=== PATIENT | female | born 1980 ===

== ENCOUNTER 2017-02-06 08:36 | Emergency (ER) | payer OTHER ==
[2017-02-06 08:37] VITALS: BMI 41.9
[2017-02-06] MEDS ORDERED: Sodium Chloride 0.9% 1,000 ML IV STA (09:26)
--- NOTE | 2017-02-06 09:41 | ED PDOC ---
HPI: Female Pain Time Seen by Provider: 02/06/17 09:11 Chief Complaint (Nursing): Shortness Of Breath Chief Complaint (Provider): dysuria History Per: Patient History/Exam Limitations: no limitations Onset/Duration Of Symptoms: Days (x 6) Current Symptoms Are (Timing): Still Present Additional Complaint(s): Traci Cowan is a 36 year old female, with a previous medical history of asthma , who presents to the ED with complaints of dysuria associated with frequency, fever, abdominal pain and vomiting ongoing for the past 6 days. Patient reports being able to tolerate PO intake and denies any diarrhea. PMD: none provided Abnormal Vaginal Bleeding: No Past Medical History Reviewed: Historical Data, Nursing Documentation, Vital Signs - Medical History PMH: No Chronic Diseases - Surgical History Surgical History: No Surg Hx - Family History Family History: States: Unknown Family Hx - Home Medications Home Medications: Ambulatory Orders Medication Instructions Recorded Multivit/Folic Acid/I 1 tab PO DAILY 04/06/16 [] Nitrofurantoin Macrocrystals 100 mg PO BID #20 cap 02/06/17 [Macrobid] Ondansetron [Zofran] 4 mg PO Q8H #10 tab 02/06/17 - Allergies Allergies/Adverse Reactions: Allergies Allergy/AdvReac Type Severity Reaction Status Date / Time No Known Allergies Allergy Verified 02/06/17 08:55 Review of Systems ROS Statement: Except As Marked, All Systems Reviewed And Found Negative Constitutional: Positive for: Fever Gastrointestinal: Positive for: Vomiting, Abdominal Pain. Negative for: Diarrhea Genitourinary Female: Positive for: Dysuria, Frequency Physical Exam - Reviewed Nursing Documentation Reviewed: Yes Vital Signs Reviewed: Yes - Physical Exam Appears: Positive for: Well, Non-toxic, No Acute Distress Cardiovascular/Chest: Positive for: Regular Rate, Rhythm Respiratory: Positive for: CNT, Normal Breath Sounds Gastrointestinal/Abdominal: Positive for: Normal Exam, Bowel Sounds, Soft. Negative for: Tenderness Back: Positive for: R CVA Tenderness (mild) Neurologic/Psych: Positive for: Alert, Oriented - Laboratory Results Result Diagrams: 02/06/17 09:40 02/06/17 09:40 Medical Decision Making Medical Decision Making: Initial Plan: * VBG shock panel * labs * urine * urine dipstick * IV NS 1,000 ml at 1,000 ml/hr * blood culture * urine culture * reevaluation Scribe Attestation: Documented by Georgina Mckeon, acting as a scribe for Rudy Cisneros MD. Provider Scribe Attestation: All medical record entries made by the Scribe were at my direction and personally dictated by me. I have reviewed the chart and agree that the record accurately reflects my personal performance of the history, physical exam, medical decision making, and the department course for this patient. I have also personally directed, reviewed, and agree with the discharge instructions and disposition. Disposition - Clinical Impression Clinical Impression: UTI (urinary tract infection), - Patient ED Disposition Is Patient to be Admitted: No Counseled Patient/Family Regarding: Studies Performed, Diagnosis, Need For Followup, Rx Given - Disposition Referrals: [facility]Outside] [facility] [Outside] Disposition: Routine/Home Disposition Time: 12:16 Condition: FAIR Prescriptions: Nitrofurantoin Macrocrystals [Macrobid] 100 mg PO BID #20 cap Ondansetron [Zofran] 4 mg PO Q8H #10 tab Instructions: Urinary Tract Infection in (ED)
[2017-02-06 10:02] LABS: VENOUS BLOOD GAS BASE EXCESS -1.2 mmol/L (0.0-2.0); VENOUS BLOOD GAS PCO2 31 mmHg (40-60); VENOUS BLOOD PH 7.46 (7.32-7.43)
[2017-02-06 10:07] LABS: ALKALINE PHOSPHATASE 79 U/L (38-126); ALT/SGPT 28 U/L (9-52); AST/SGOT 27 U/L (14-36); BILIRUBIN,TOTAL 0.8 mg/dl (0.2-1.3); BLOOD UREA NITROGEN 15 mg/dl (7-17); CALCIUM 8.8 mg/dL (8.4-10.2); CARBON DIOXIDE 23 mmol/L (22-30); CHLORIDE 100 mmol/L (98-107); GFR AFRICAN-AMERICAN > 60; GLUCOSE,RANDOM 114 mg/dL (65-105); POTASSIUM 3.2 MMOL/L (3.6-5.0); SODIUM 135 mmol/l (132-148); TOTAL PROTEIN 8.2 G/DL (6.3-8.2)
[2017-02-06 10:16] LABS: BASO % 0.2 % (0.0-2.0); EOS % 0.1 % (0.0-4.0); MEAN CELL VOLUME 78.4 fl (81.0-99.0); MEAN CORPUSCULAR HEMOGLOBIN 25.7 pg (27.0-31.0); MEAN CORPUSCULAR HGB CONC 32.8 g/dL (33.0-37.0); MEAN PLATELET VOLUME 8.7 fl (7.2-11.7); MONO # 1.5 K/uL (0.0-0.8); MONO % 10.8 % (0.0-10.0); NEUT # 11.6 K/uL (1.8-7.0); NEUT % 81.9 % (50.0-75.0); NRBC % 0.1 % (0.0-0.0); PLATELET COUNT 282 K/uL (130-400); RED CELL DISTRIBUTION WIDTH 17.3 % (11.5-14.5); WHITE BLOOD COUNT 14.1 K/uL (4.8-10.8)
[2017-02-06] MEDS ORDERED: Potassium Chloride 20 mEq ER Tab PO ONE ×2 (10:19→11:18)
[2017-02-06 11:14] LABS: NEUTROPHIL 83 % (42-75); TOTAL CELLS COUNTED 100
[2017-02-06 12:49] VITALS: BP 108/65; PULSE 88; RESP 18; TEMP 100.5; O2SAT 98
--- NOTE | 2017-02-06 13:57 | US ---
HISTORY: r/o ectopic COMPARISON: None available. TECHNIQUE: Transvaginal ultrasound examination of the pelvis. FINDINGS: UTERUS: Measures 9.2 x 5.5 x 5.5 cm. Normal in size and appearance. No fibroid or other mass lesion seen. ENDOMETRIUM: There is intrauterine gestational sac contains pole and yolk sac. Gestational sac mean is 1.2 centimeter which corresponding to gestational age of 5 weeks 2 days. The CRL measures 0.26 centimeter which corresponding to gestational age of 5 weeks 6 days. The yolk sac measures 0.25 centimeter. The heart rate is 146 BPM. CERVIX: No cervical abnormality identified. RIGHT OVARY: Measures 3.5 x 2.7 x 2.1 cm. No solid mass. Normal flow. LEFT OVARY: Measures 2.5 x 2.4 x 1.6 cm. No solid mass. Normal flow. FREE FLUID: No significant free fluid noted. OTHER FINDINGS: None. IMPRESSION: Single intrauterine live with ultrasound estimated gestational age of 5 weeks 4 days +/- 0 weeks 3 days. Estimated date of delivery by ultrasound is 10/05/2017.
== END 2017-02-06 12:48 | disposition home or self-care (01) ==
LOC: H.ER 08:36
DX: O23.40 Unspecified infection of urinary tract in pregnancy, unspecified trimester (principal); J45.909 Unspecified asthma, uncomplicated; O21.9 Vomiting of pregnancy, unspecified

== ENCOUNTER 2017-10-14 04:46 | Inpatient (IN) | payer OTHER ==
[2017-10-14 05:07] VITALS: BMI 42.6
[2017-10-14] MEDS ORDERED: AMPicillin 2 GM in Sodium Chloride 0.9% 100 ML IVPB STA (05:10)
[2017-10-14] MEDS ORDERED: AMPicillin 1 GM in Sodium Chloride 0.9% 100 ML IVPB SCH (05:15)
[2017-10-14] MEDS ORDERED: Oxytocin 30 units/LR 500ML 30 U/500 ML BAG IV PRN (05:18)
[2017-10-14] MEDS ORDERED: Lidocaine 2% Inj (20ml) ONE (05:19)
[2017-10-14] MEDS: Lactated Ringer's 1,000 ML IV SCH ×4 (05:25→08:25)
[2017-10-14 05:34] VITALS: PULSE 86
[2017-10-14 05:42] LABS: BASO % 0.3 % (0.0-2.0); EOS # 0.2 K/uL (0.0-0.7); EOS % 1.6 % (0.0-4.0); HEMOGLOBIN 9.2 g/dL (12.0-16.0); LYMPH # 2.9 K/uL (1.0-4.3); LYMPH % 26.8 % (20.0-40.0); MEAN CELL VOLUME 71.2 fl (81.0-99.0); MEAN CORPUSCULAR HEMOGLOBIN 22.7 pg (27.0-31.0); MEAN CORPUSCULAR HGB CONC 31.9 g/dL (33.0-37.0); MEAN PLATELET VOLUME 8.4 fl (7.2-11.7); MONO # 0.7 K/uL (0.0-0.8); MONO % 6.4 % (0.0-10.0); NEUT % 64.9 % (50.0-75.0); NRBC % 0.1 % (0.0-0.0); RBC 4.06 Mil/uL (3.80-5.20); RED CELL DISTRIBUTION WIDTH 18.2 % (11.5-14.5); WHITE BLOOD COUNT 10.8 K/uL (4.8-10.8)
[2017-10-14] MEDS ORDERED: Oxytocin 30 UNITS in Sodium Chloride 0.9% 500 ML IV PRN (05:45)
[2017-10-14] MEDS ORDERED: Bupivacaine HCl 0.25% PF (10 ml) Inj ONE (07:16)
[2017-10-14] MEDS ORDERED: Fentanyl/Bupivacaine HCl 250 ML EPI ONE (07:17)
[2017-10-14] MEDS ORDERED: Oxytocin 30 UNITS in Sodium Chloride 0.9% 500 ML IV ONE (08:30)
--- NOTE | 2017-10-14 10:14 | OBADHP ---
Datetime: 10/14/2017 06:18 Admit Comment, IP Provider: 37 yo at 41.2 weeks gestational age with DOMINICK 10/06/17 presented t o [facility] with suspected rupture of membranes; states this happened at 0420 this morning. Reports good f etal movement and states she has been having contractions q5 min. No vaginal bleeding. ROS: Denies dizziness, headache, shortness of breath, chest pain, nausea, vomiting, issues voiding , leg/calf pain. care: Dr. Russell; labs reviewed: GBS positive, ABO O pos antibody neg, CL/GC ne g, rubella immune, HBsAg neg; RPR and HIV from 04/2017. Obhx: TOP (1992, 2007) 1 c/s 1998. all other (1994,2000,2005,2009,2010,2011,2013,2014) Med hx: HSV 2, asthma Surg hx: C-sec 1998 Fam hx: htn Allergies: nkda Meds: PNV, Valtrex 500 mg (last dose yesterday) PE: VSS Gen: alert, oriented CV: S1S2,RRR Resp: clear breath sounds, normal effort Abd: gravid Ext: no significant edema, no tenderness to palpation A: 37 yo with IUP at 41.2 weeks with SROM. P: Admission and expectant . RPR/HIV screen. Unit RN spoke to Dr. Russell. [email or web address] Pelvic Type - PN: Adequate Extremities - PN: Normal Abdomen - PN: Normal Back - PN: Not Done Breast - PN: Not Done Lungs - PN: Normal Heart - PN: Normal Thyroid - PN: Not Done Neurologic - PN: Normal HEENT - PN: Normal General - PN: Normal FHR - Baseline A Provider: 135 Amniotic Fluid Color, Provider: Meconium, Light Membranes, Provider: Ruptured IP Hx Assessment: The History has been Reviewed and is Current Vital Signs Provider: Reviewed IP Chief Complaint: Suspected ruptured membranes NICHD Variability Prov Fetus A: Moderate 6-25bpm NICHD Accel Fetus A IP Provider: [id number] FHR Category Provider Fetus A: Category I Dilatation, Provider: 3 Effacement, Provider: 80 Station, Provider: -2 Genitourinary Exam: Normal DTRs - PN: Not Done EGA AdmitDate IP: 41.2 IP Adm Impression: Term, intrauterine IP Admit Plan: Admit to unit; Initiate protocol
[2017-10-14] MEDS ORDERED: Oxycodone/Acetaminophen 5/325 mg Tab PO PRN ×2 (12:52→15:19)
--- NOTE | 2017-10-14 13:03 | OBDS ---
DELIVERY PERSONNEL Delivery Doctor: Elana Russell MD Anesthesiologist: Kianna Miller MD MATERNAL INFORMATION Delivery Anesthesia: Epidural Medications in Delivery: [id number]/500mL of NS Estimated Blood Loss (ml): 200 Placenta Cultured: No Other Maternal Complications: prev C/S Provider Comments: Delivered a living baby girl appears LGA cried spontaneously Peds in attendence A pgar 8 AF meconium stained Placenta delivered complete and intact Low uterine segment mannually javier cked no defiects Uterus contracted well No complications No vaginal cervical or perineal lacerations noted Tolerated procedure well LABOR SUMMARY EDC: 10/05/2017 00:00 LABOR INFORMATION Reason for Induction: Not Applicable Oxytocin: Augmentation Group B Beta Strep: Positive Antibiotics # of Doses: 2 Steroids Given: None Reason Steroids Not Administered: Not Applicable MEMBRANES Membranes Rupture Method: Spontaneous Rupture of Membranes: 10/14/2017 04:20 Length of Rupture (hrs): 8.40 Amniotic Fluid Color: Clear Amniotic Fluid Amount: Small Amniotic Fluid Odor: Normal STAGES OF LABOR Stage 3 hrs: 0 Stage 3 min: 3 VAGINAL DELIVERY Episiotomy: None Laceration Extension: N/A Laceration Type: None Laceration Repair: Not Applicable Laceration Repair Note: n/a Sponge Count Correct: Yes Sharps Count Correct: N/A Count Comment: count correct and verified by RN CSECTION DELIVERY Primary Indication: N/A Secondary Indication: N/A CSection Incision: N/A Uterine Closure: N/A BABY A INFORMATION Delivery Date/Time: 10/14/2017 12:44 Method of Delivery: Vaginal Born in Route : No : Successful Forceps: N/A Vacuum Extraction: N/A Shoulder Dystocia : No SHOULDER DYSTOCIA BABY A Delivery Date/Time: 10/14/2017 12:44 PRESENTATION/POSITION BABY A Presentation: Cephalic Cephalic Presentation: Vertex Vertex Position: Left Occipital Anterior Breech Presentation: N/A PLACENTA INFORMATION BABY A Placenta Delivery Time : 10/14/2017 12:47 Placenta Method of Delivery: Spontaneous Placenta Status: Delivered SCORES BABY A Heart Rate 1 min: >100 bpm Resp Effort 1 min: Good Cry Reflex Irritability 1 min: Cough or Sneeze or Pulls Away Muscle Tone 1 min: Some Flexion of Extremities Color 1 min: Body [place], Extremities Blue Resuscitation Effort 1 min: Tactile Stimulation; Oxygen SCORE 1 MIN: 8 Heart Rate 5 min: >100 bpm Resp Effort 5 min: Good Cry Reflex Irritability 5 min: Cough or Sneeze or Pulls Away Muscle Tone 5 min: Active Motion Color 5 min: Body [place], Extremities Blue Resuscitation Effort 5 min: N/A SCORE 5 MIN: 9 INFANT INFORMATION BABY A Gestational Age at Delivery: 41.2 Gestational Status: Term Infant Outcome : Liveborn Infant Condition : Stable Infant Sex: Female IDENTIFICATION/MEDS BABY A ID Band Number: [id number] WEIGHT/LENGTH BABY A Birthweight (gms): 3880 Weight (lb): 8 Infant Weight (oz): 9 CORD INFORMATION BABY A No. Cord Vessels: 3 Nuchal Cord : N/A Cord Blood Taken: Yes
[2017-10-15 07:29] LABS: HEMOGLOBIN 8.3 g/dL (12.0-16.0); MEAN CELL VOLUME 72.2 fl (81.0-99.0); MEAN CORPUSCULAR HEMOGLOBIN 22.3 pg (27.0-31.0); MEAN CORPUSCULAR HGB CONC 30.9 g/dL (33.0-37.0); RBC 3.71 Mil/uL (3.80-5.20); RED CELL DISTRIBUTION WIDTH 18.8 % (11.5-14.5); WHITE BLOOD COUNT 13.4 K/uL (4.8-10.8)
--- NOTE | 2017-10-15 12:40 | OBPPN ---
Datetime: 10/15/2017 12:35 PP Pain Prov: Within normal limits PP Pain Prov comment: no SOB, chest ior leg pains PP Nausea Prov: Denies PP Flatus Prov: Yes PP Nausea Prov comment: no dizziness PP Flatus Prov comment: voiding well PP Breasts Prov: Normal PP Lungs Prov: Normal PP Abdomen/Uterus Prov: Abnormal PP Lochia Prov: Normal PP Vulva/Perineum Prov: Normal PP CVA Tenderness Prov: Normal PP Extremities Prov: Normal PP C/S Incision Prov: Not Applicable PP Progress Prov: Normal PP Comments Phys Exam Prov: breast not engorged, abd soft ND, fundus firm below the umb. Lockia n ormal Ext no calf tenderness PP Impression Prov: Normal progression PP Plan Prov: Continue present management PP Progress Note Prov: OOB and ambulation start po iron IP PP Procedures: None
--- NOTE | 2017-10-16 07:13 | OBPPN ---
Datetime: 10/16/2017 07:10 PP Pain Prov: Within normal limits PP Pain Prov comment: No SOB, chest or leg pains PP Nausea Prov: Denies PP Flatus Prov: Yes PP Breasts Prov: Normal PP Lungs Prov: Normal PP Abdomen/Uterus Prov: Abnormal PP Lochia Prov: Normal PP Vulva/Perineum Prov: Normal PP CVA Tenderness Prov: Normal PP Extremities Prov: Normal PP C/S Incision Prov: Not Applicable PP Progress Prov: Normal PP Comments Phys Exam Prov: breast not engorged NT, Abd soft ND, fundus firm below the umb. No calf tenderness PP Impression Prov: Normal progression PP Plan Prov: Discharge PP Progress Note Prov: D/C home with instructions IP PP Procedures: None Vital Signs Provider PP: Reviewed
--- NOTE | 2017-10-16 07:15 | OBDCSUM ---
Datetime: 10/16/2017 07:12 Discharged to, Provider: Home Follow up at, Provider: Dr Russell Disch Instr Activity: Bedrest; May be up to bathroom; May be up for meals; May Shower Disch Instr Diet: Regular Discharge Instructions, Provider: Routine instructions given Discharge Diagnosis, Provider: Term Delivered Discharge Time: 10/16/2017 07:12 Follow up in weeks, Provider: 4-6 wks Disch Referrals: None Contraception discussed, Prov: Yes Disch Activity Restrictions: No exercising; No lifting; No driving; Minimize walking; Minimize stair -climbing; No sexual activity; Nothing in vagina - [place], tampons, douche Discharge Comment, Provider: Continue PNC vjit and iron Pelvic and bed rst Discharge Diagnosis Prov Other: prev C/S Meconium stained fluid Contraception after Delivery: Undecided
[2017-10-17 00:59] VITALS: BP 113/52; RESP 20; TEMP 98.4; O2SAT 99
== END 2017-10-16 19:53 | disposition home or self-care (01) | DRG 373 ==
LOC: H.EROB2 04:46 → H.L&D 05:10 → H.OB/GYN 16:32
PROVIDERS: ADMIT Specialist; ATTEND Specialist
PROC: 10E0XZZ Delivery of Products of Conception, External Approach (ICD-10-PCS; principal; 2017-10-14)
PROC: 4A1HXCZ Monitoring of Products of Conception, Cardiac Rate, External Approach (ICD-10-PCS; 2017-10-14)
DX: O34.219 Maternal care for unspecified type scar from previous cesarean delivery (principal); J45.909 Unspecified asthma, uncomplicated; Z37.0 Single live birth; N85.8 Other specified noninflammatory disorders of uterus; O99.52 Diseases of the respiratory system complicating childbirth; O48.0 Post-term pregnancy; O77.0 Labor and delivery complicated by meconium in amniotic fluid; Z3A.41 41 weeks gestation of pregnancy; O36.63X0 Maternal care for excessive fetal growth, third trimester, not applicable or unspecified

== ENCOUNTER 2018-09-18 12:34 | Emergency (ER) | payer OTHER ==
[2018-09-18 12:35] VITALS: BMI 42.6
[2018-09-18 12:47] VITALS: PULSE 88; RESP 16; TEMP 97.8; O2SAT 99
[2018-09-18] MEDS ORDERED: Lidocaine 5% Patch TD STA (13:05)
--- NOTE | 2018-09-18 13:10 | ED PDOC ---
HPI: Trauma/Fall - HPI Time Seen by Provider: 09/18/18 12:54 Chief Complaint (Nursing): Trauma Chief Complaint (Provider): Fall History Per: Patient History/Exam Limitations: no limitations Onset/Duration Of Symptoms: Days Injury Occurred (Timing): Days Ago: (4) Additional History Per: Patient Additional Complaint(s): 37yo female, history of asthma, currently 19 weeks , comes to ER for evaluation of lower back pain and buttock pain for the past 4 days. Patient states she slid down 4 steps and injured her back and buttocks; she reports pain with ambulation and movement. Patient took Tylenol x 1 4 days ago with no relief. She denies any head injury or abdominal injury; she also denies any weakness, numbness, radiation of pain, vomiting, vaginal bleeding or discharge. Patient has no additional complaints. PMD: Dr. Russell Past Medical History Reviewed: Historical Data, Nursing Documentation, Vital Signs Vital Signs: Last Vital Signs Temp 97.8 F 09/18/18 12:43 Pulse 88 09/18/18 12:43 Resp 16 09/18/18 12:43 BP 115/78 09/18/18 12:43 Pulse Ox 99 09/18/18 12:43 - Medical History PMH: Asthma Denies: Depression, Diabetes, HTN - Surgical History Surgical History: No Surg Hx - Family History Family History: States: No Known Family Hx - Living Arrangements Living Arrangements: With Family - Home Medications Home Medications: Ambulatory Orders Medication Instructions Recorded Vit No.126/Iron/Folic 1 tab PO DAILY 10/14/17 [Classic Tablet] Acetaminophen [Non-Aspirin Pain 975 mg PO TID PRN 6 Days tablet 09/18/18 Relief] Lidocaine 5% [Lidoderm] 1 ea TD DAILY PRN #5 patch 09/18/18 - Allergies Allergies/Adverse Reactions: Allergies Allergy/AdvReac Type Severity Reaction Status Date / Time No Known Allergies Allergy Verified 02/06/17 08:55 Review of Systems ROS Statement: Except As Marked, All Systems Reviewed And Found Negative Gastrointestinal: Negative for: Nausea, Vomiting Genitourinary Female: Negative for: Vaginal Discharge, Vaginal Bleeding Musculoskeletal: Positive for: Back Pain Neurological: Negative for: Weakness, Numbness, Headache Physical Exam - Reviewed Nursing Documentation Reviewed: Yes Vital Signs Reviewed: Yes - Physical Exam Appears: Positive for: Non-toxic, No Acute Distress Head Exam: Positive for: ATRAUMATIC, NORMAL INSPECTION, NORMOCEPHALIC Skin: Positive for: Normal Color Eye Exam: Positive for: Normal appearance Neck: Positive for: Normal, Supple Cardiovascular/Chest: Positive for: Regular Rate, Rhythm Respiratory: Positive for: Normal Breath Sounds Gastrointestinal/Abdominal: Positive for: Normal Exam, Soft, Other (gravid uterus) Back: Positive for: Other ((+) straight leg raise at 45 degrees bilaterally; (+) tenderness paralumbar region bilaterally). Negative for: Vertebral Tenderness Extremity: Positive for: Normal ROM. Negative for: Pedal Edema Neurologic/Psych: Positive for: Alert, Oriented. Negative for: Motor/Sensory Deficits - ECG O2 Sat by Pulse Oximetry: 99 (RA) Pulse Ox Interpretation: Normal - CT Scan/US US Other Rad Studies (CT/US): Read By Radiologist Other Rad Interpretation: 20wks 2days, sliup - Progress ED Course And Treament: 1439: Stable. AAOx3. Pain free. Spoke with Dr. Briones. Wants pt. to be seen upstairs at [facility]. Medical Decision Making Medical Decision Making: Impression: Lower back pain s/p fall Patient is 19weeks Plan: -- US Transabdominal -- Tylenol 975mg PO -- Lidoderm patch 1430 Scribe Attestation: Documented by Tasia Joy acting as a scribe for Christian Quinn MD. Provider Attestation: All medical record entries made by the Scribe were at my direction and personally dictated by me. I have reviewed the chart and agree that the record accurately reflects my personal performance of the history, physical exam, medical decision making, and the department course for this patient. I have also personally directed, reviewed, and agree with the discharge instructions and disposition. Disposition - Clinical Impression Clinical Impression: Trauma during , Back pain - Patient ED Disposition Is Patient to be Admitted: No Counseled Patient/Family Regarding: Studies Performed, Diagnosis - Disposition Disposition: Routine/Home Disposition Time: 14:42 Condition: STABLE Additional Instructions: Return if not better in 3 days. You need to go upstairs without fail and get further testing for the baby. monitoring. Prescriptions: Acetaminophen [Non-Aspirin Pain Relief] 975 mg PO TID PRN 6 Days tablet PRN Reason: Pain, Moderate (4-7) Lidocaine 5% [Lidoderm] 1 ea TD DAILY PRN #5 patch PRN Reason: Pain, Moderate (4-7) Instructions: Abdominal Trauma in , Low Back Pain in Adults Forms: [facility] ([place])
[2018-09-18] MEDS ORDERED: Lidocaine 5% Patch TD ONE (13:21)
--- NOTE | 2018-09-18 14:32 | US ---
Date of service: 09/18/2018 PROCEDURE: OB Pelvic Ultrasound HISTORY: pain LMP: 05/03/2018 COMPARISON: No relevant prior imaging. FINDINGS: UTERUS: Placenta: Fundal Presentation: Cephalic BPD: 4.8 cm compatible with estimated gestational age of 20 weeks, 3 days HC: 17.4 cm compatible with estimated gestational age 20 weeks, 0 days AC: 14.8 cm compatible with estimated gestational age of 20 weeks, 0 days FL: 3.3 cm compatible with estimated gestational age of 20 weeks, 3 days Heart rate: 138 bpm. age (Ultrasound estimated): 20 weeks, 2 days Alicia-gestational hemorrhage: None. Date of delivery (Ultrasound estimated) : 02/03/2019 EFW: 337.15 grams +/-50.57 grams (12 ounce +/-2 ounce) CERVIX: Measures 3.8 cm. Long and closed. No cervical abnormality seen. FREE FLUID: None. OTHER FINDINGS: None. IMPRESSION: Single live intrauterine gestation with average ultrasound age of 20 weeks, 2 days. heart rate 138 beats per minute. Cervix long and closed.
[2018-09-18 15:39] VITALS: BP 122/84
== END 2018-09-18 14:45 | disposition home or self-care (01) ==
LOC: H.ER 12:34 → H.EROB2 12:34 → H.L&D 15:32
DX: O26.92 Pregnancy related conditions, unspecified, second trimester (principal); M54.5 Low back pain; Z3A.19 19 weeks gestation of pregnancy; W10.9XXA Fall (on) (from) unspecified stairs and steps, initial encounter

== ENCOUNTER 2019-01-23 14:02 | Emergency (ER) | payer MEDICAID, OTHER ==
--- NOTE | 2019-01-23 14:22 | OBHP ---
Datetime: 09/18/2018 16:00 IP Adm Impression: , intrauterine IP Admit Plan: Observation/Evaluation; Discharge home Admit Comment, IP Provider: 37 y/o female ,0,2,10 at 22.2 GA presents to [facility] and c/o falling on her back 5 days ago. Patient denies trauma to abdomen, abdominal pain, vaginal bleed, and reports movement. Patient was evaluated by [facility] and given a lidoderm patch, which she reports has im proved her back pain. OB: Dr. Russell OBhx: 1 , 9 , 2 abortions. Has not establisehed care for this Pmhx: Asthma HomeRx: vitamins Famhx: non-contributory SurgHx: x 1 Socialhx: denies toxic habits Allergies: NKDA ROS negative except per HPI Physical Exam: Gen: sitting up in bed comfortably, no acute distress Heart: S1 S2, RRR Lungs: normal resp effort, clear to auscultation bilaterally Abd: no signs of trauma, gravid, soft, non-tender, normal BS Extremities: no swelling/erythema/tenderness Assessment and Plan 37 y/o female ,0,2,10 at 22.2 GA IUP OB U/S shows: Single live IUP FHR 138 bpm, Cervix long and closed Patient is stable for discharge to home w/ ER precautions given. Patient has appointment w/ Dr. Amarjit lubin on 09/24/2018. Case discussed w/ Dr. Jr Castellon, pgyi OB Hospitalist note: With PGY1, I saw and examined this patient. SVE FT-1cm....spoek to Dr Gustavo hussein. he has not seen this pt yet for this preg. She has appt with him Agree with note MAHNDO Pelvic Type - PN: Not Done Extremities - PN: Normal Abdomen - PN: Normal Back - PN: Normal Breast - PN: Not Done Lungs - PN: Normal Heart - PN: Normal Thyroid - PN: Not Done Neurologic - PN: Not Done HEENT - PN: Normal General - PN: Normal Contraction Comments Provider: none Gestation - Est Wks by US: 20.2 EGA AdmitDate IP: 20.2 Vital Signs Provider: Reviewed; Within Normal Limits IP Chief Complaint: Trauma/Fall Dilatation, Provider: closed Genitourinary Exam: Not Done DTRs - PN: Not Done
[2019-01-23 14:49] VITALS: BMI 47.2
[2019-01-23 15:19] LABS: BASO % 0.1 % (0.0-2.0); EOS # 0.1 K/uL (0.0-0.7); EOS % 1.3 % (0.0-4.0); HEMOGLOBIN 10.1 g/dL (12.0-16.0); LYMPH # 2.2 K/uL (1.0-4.3); LYMPH % 21.8 % (20.0-40.0); MEAN CELL VOLUME 77.4 fl (81.0-99.0); MEAN CORPUSCULAR HEMOGLOBIN 24.6 pg (27.0-31.0); MEAN CORPUSCULAR HGB CONC 31.8 g/dL (33.0-37.0); MEAN PLATELET VOLUME 8.4 fl (7.2-11.7); MONO # 0.6 K/uL (0.0-0.8); MONO % 6.4 % (0.0-10.0); NEUT % 70.4 % (50.0-75.0); NRBC % 0.1 % (0.0-0.0); RBC 4.11 Mil/uL (3.80-5.20); RED CELL DISTRIBUTION WIDTH 17.3 % (11.5-14.5); WHITE BLOOD COUNT 9.9 K/uL (4.8-10.8)
[2019-01-23 15:23] LABS: SQUAMOUS EPITHIAL 1 /hpf (0-5); URINE BACTERIA RARE (<OCC); URINE BILIRUBIN NEGATIVE (NEGATIVE); URINE BLOOD SMALL (NEGATIVE); URINE CLARITY SLIGHTY-CLOUDY (Clear); URINE COLOR YELLOW (YELLOW); URINE GLUCOSE (UA) NEG (NEGATIVE); URINE LEUKOCYTE ESTERASE TRACE Leu/uL (Negative); URINE PROTEIN NEGATIVE (NEGATIVE); URINE UROBILINOGEN 0.2-1.0 mg/dL (0.2-1.0)
[2019-01-23 15:31] LABS: ALB/GLOB RATIO 1.1 (1.0-2.1); ALBUMIN 3.5 g/dL (3.5-5.0); ALT/SGPT 34 U/L (9-52); AST/SGOT 39 U/L (14-36); BLOOD UREA NITROGEN 10 mg/dl (7-17); CALCIUM 8.6 mg/dL (8.4-10.2); GFR NON-AFRICAN AMERICAN > 60; URIC ACID 5.4 mg/Dl (2.2-7.5)
[2019-01-23 22:50] VITALS: BP 115/52; PULSE 126; RESP 18; TEMP 98.1; O2SAT 99
== END 2019-01-23 17:20 | disposition home or self-care (01) ==
LOC: H.EROB2 14:02
DX: O26.92 Pregnancy related conditions, unspecified, second trimester (principal); Z04.3 Encounter for examination and observation following other accident; Z3A.22 22 weeks gestation of pregnancy; Z87.59 Personal history of other complications of pregnancy, childbirth and the puerperium; W19.XXXD Unspecified fall, subsequent encounter; J45.909 Unspecified asthma, uncomplicated